=== PATIENT | male | born 1985 | race Caucasian/White ===

== ENCOUNTER 2017-08-20 17:36 | Emergency (ER) | payer OTHER ==
[~2017-08-20] VITALS: Ht 172.7 cm; Wt 70.0 kg
[2017-08-20 17:37] VITALS: BP 159/94; PULSE 83; RESP 14; TEMP 97.4; O2SAT 100
[2017-08-20] MEDS ORDERED: ADDE10 PO (18:02)
[2017-08-20] MEDS ORDERED: CELE20TA PO (18:02)
[2017-08-20] MEDS ORDERED: METHY10 PO (18:02)
[2017-08-20] MEDS ORDERED: OMEP20TA93 PO (18:02)
[2017-08-20] MEDS ORDERED: XANA2TAB2 PO (18:03)
[2017-08-20 18:05] VITALS: BP 169/104; PULSE 79; RESP 16; TEMP 98.3; O2SAT 100
--- NOTE | 2017-08-20 18:25 | PD ---
HPI Chief Complaint: Neuro Symptoms/ Deficits Time Seen by Provider: 17:57 Travel History International Travel<30 days: No Contact w/Intl Traveler<30days: No Traveled to known affect area: No History of Present Illness HPI Patient is a 32-year-old male presents emergency Department with multiple complaints and probably one complaint and every body system. He states with complaints of constipation, as complaints of fatigue and weakness. States she' s not been sleeping well. Also complains that he was admitted for a TIA in June and had a workup by his new primary care physician which she was not satisfied by. His new primary care physician told him he was schizophrenic and started him on new medicines within the last week. He is also been having complaints of prostatitis which is currently being treated as an outpatient. He is coming by his father who into to me during the patient exam that his real issues the patient has pressured speech and near flight of ideas. No suicidal or homicidal ideation. He denies any illicit substance abuse. All these symptoms been going on for more than 3 weeks. He states been great and gradually worse, symptoms moderate. Context as above. PFSH Past Medical History Anxiety: Yes Hypertension: Yes Past Surgical History Other Surgery: Yes (TITANIUM PLATE IN MANDIBLE) Social History Alcohol Use: Yes (OCCASSIONAL) Tobacco Use: Yes (1 PPD) Substance Use: Yes (MARIJUANA AT NIGHT) Allergies-Medications (Allergen,Severity, Reaction): Coded Allergies: No Known Allergies (Unverified , 08/20/17) Reported Meds & Prescriptions Reported Meds & Active Scripts Active Reported Xanax (Alprazolam) 2 Mg Tab 3 Mg PO Q8H PRN Adderall (Amphetamine-Dextroamphetamine) 10 Mg Tab 10 Mg PO TID Avoid late evening doses. Space doses at least 4 to 6 hours if more than once/day dosing. Ritalin IR (Methylphenidate HCl) 10 Mg Tab 10 Mg PO TIDAC Omeprazole 20 Mg Tab 20 Mg PO DAILY Celexa (Citalopram Hydrobromide) 20 Mg Tab 20 Mg PO DAILY Review of Systems Except as stated in HPI: all other systems reviewed are Neg Physical Exam Narrative GENERAL: Well-developed well-nourished in no obvious distress. SKIN: Focused skin assessment warm/dry. HEAD: Atraumatic. Normocephalic. EYES: Pupils equal and round. No scleral icterus. No injection or drainage. ENT: No nasal bleeding or discharge. Mucous membranes pink and moist. NECK: Trachea midline. No JVD. CARDIOVASCULAR: Regular rate and rhythm. No murmur appreciated. RESPIRATORY: No accessory muscle use. Clear to auscultation. Breath sounds equal bilaterally. GASTROINTESTINAL: Abdomen soft, non-tender, nondistended. Hepatic and splenic margins not palpable. MUSCULOSKELETAL: No obvious deformities. No clubbing. No cyanosis. No edema. NEUROLOGICAL: Awake and alert. No obvious cranial nerve deficits. Motor grossly within normal limits. Normal speech. PSYCHIATRIC: Appropriate mood and affect; fairly pressured speech and difficult to keep on topic. Denies suicidal homicidal ideation. Data Data Last Documented VS Vital Signs Date Time Temp Pulse Resp B/P (MAP) Pulse Ox O2 Delivery O2 Flow Rate FiO2 08/21/17 00:34 08/21/17 00:34 76 14 99 Room Air 08/20/17 18:05 98.3 Orders Orders Electrocardiogram (08/20/17 18:22) Complete Blood Count With Diff (08/20/17 18:22) Comprehensive Metabolic Panel (08/20/17 18:22) Creatine Kinase (Cpk) (08/20/17 18:22) Troponin I (08/20/17 18:22) Thyroid Stimulating Hormone (08/20/17 18:22) Urinalysis - C+S If Indicated (08/20/17 18:22) Ct Brain W/O Iv Contrast(Rout) (08/20/17 18:22) Blood Glucose (08/20/17 18:22) Ecg Monitoring (08/20/17 18:22) Iv Access Insert/Monitor (08/20/17 18:22) Oximetry (08/20/17 18:22) Sodium Chloride 0.9% Flush (Ns Flush) (08/20/17 18:30) Drug Screen, Random Urine (08/20/17 18:22) Alcohol (Ethanol) (08/20/17 18:22) Tylenol (Acetaminophen) (08/20/17 18:22) Salicylates (Aspirin) (08/20/17 18:22) Abdomen, Kub Only (08/20/17 ) Gc And Chlamydia Pcr (08/20/17 18:26) Psych Screen (08/20/17 18:34) Lorazepam Inj (Ativan Inj) (08/20/17 20:00) Diphenhydramine Inj (Benadryl Inj) (08/20/17 20:00) Lisinopril (Prinivil) (08/20/17 22:15) Ed Discharge Order (08/21/17 00:08) Labs Laboratory Tests Test 08/20/17 18:25 08/20/17 18:50 White Blood Count 6.5 TH/MM3 Red Blood Count 4.62 MIL/MM3 Hemoglobin 15.4 GM/DL Hematocrit 43.7 % Mean Corpuscular Volume 94.7 FL Mean Corpuscular Hemoglobin 33.3 PG Mean Corpuscular Hemoglobin Concent 35.2 % Red Cell Distribution Width 12.9 % Platelet Count 288 TH/MM3 Mean Platelet Volume 6.9 FL Neutrophils (%) (Auto) 47.4 % Lymphocytes (%) (Auto) 34.4 % Monocytes (%) (Auto) 11.5 % Eosinophils (%) (Auto) 6.1 % Basophils (%) (Auto) 0.6 % Neutrophils # (Auto) 3.1 TH/MM3 Lymphocytes # (Auto) 2.3 TH/MM3 Monocytes # (Auto) 0.8 TH/MM3 Eosinophils # (Auto) 0.4 TH/MM3 Basophils # (Auto) 0.0 TH/MM3 CBC Comment DIFF FINAL Differential Comment Blood Urea Nitrogen 11 MG/DL Creatinine 1.09 MG/DL Random Glucose 85 MG/DL Total Protein 8.0 GM/DL Albumin 4.5 GM/DL Calcium Level 9.0 MG/DL Alkaline Phosphatase 63 U/L Aspartate Amino Transf (AST/SGOT) 18 U/L Alanine Aminotransferase (ALT/SGPT) 24 U/L Total Bilirubin 0.6 MG/DL Sodium Level 137 MEQ/L Potassium Level 3.6 MEQ/L Chloride Level 103 MEQ/L Carbon Dioxide Level 27.0 MEQ/L Anion Gap 7 MEQ/L Estimat Glomerular Filtration Rate 78 ML/MIN Total Creatine Kinase 134 U/L Troponin I LESS THAN 0.02 NG/ML Thyroid Stimulating Hormone 3rd Gen 2.550 uIU/ML Salicylates Level LESS THAN 1.7 MG/DL Acetaminophen Level LESS THAN 2.0 MCG/ML Ethyl Alcohol Level LESS THAN 3 MG/DL Urine Color YELLOW Urine Turbidity HAZY Urine pH 7.0 Urine Specific [place] 1.022 Urine Protein TRACE mg/dL Urine Glucose (UA) NEG mg/dL Urine Ketones NEG mg/dL Urine Occult Blood NEG Urine Nitrite NEG Urine Bilirubin NEG Urine Urobilinogen 2.0 MG/DL Urine Leukocyte Esterase TRACE Urine RBC 2 /hpf Urine WBC 3 /hpf Urine Squamous Epithelial Cells 1 /hpf Urine Amorphous Sediment FEW Urine Bacteria OCC /hpf Urine Mucus FEW /lpf Microscopic Urinalysis Comment CULT NOT INDICATED Urine Opiates Screen NEG Urine Barbiturates Screen NEG Urine Amphetamines Screen POS Urine Benzodiazepines Screen POS Urine Cocaine Screen NEG Urine Cannabinoids Screen POS Chlamydia trachomatis DNA (PCR) NOT DETECTED Neisseria gonorrhoeae DNA (PCR) NOT DETECTED MDM Medical Decision Making Medical Screen Exam Complete: Yes Emergency Medical Condition: Yes Differential Diagnosis Constipation, electrolyte abnormality, substance abuse, substance-induced psychosis, altered mental status, intracranial abnormality. Narrative Course Patient with multiple complaints, fairly pressured speech wonder there is an element of substance induced psychosis. However his psychotic symptoms are fairly mild and he is not greatly disabled nor threat to himself or others at this time. I think the patient would benefit from basic labs as well as CAT scan of his head and a KUB for his reassurance. Patient was discussed with Dr. Fairbanks at 1900 shift change to follow-up this workup and disposition the patient appropriately. I've ordered a psych screen. My impression of the patient is that he has chronic complaints psychiatric overtones likely is stable for discharge if workup is negative. James Owens MD Aug 20, 2017 18:25
[2017-08-20] MEDS ORDERED: SODIUM CHLORIDE 0.9% FLUSH 10 ML FLUSH IV FLUSH PRN (18:30)
[2017-08-20 18:56] VITALS: O2SAT 100
[2017-08-20 19:01] LABS: AUTOMATED NEUTROPHIL # 3.1 TH/MM3 (1.8-7.7); BASOPHIL % 0.6 % (0.0-2.0); EOSINOPHIL # 0.4 TH/MM3 (0-0.4); EOSINOPHIL % 6.1 % (0.0-4.0); HEMATOCRIT 43.7 % (39.0-51.0); HEMO FLAGS DIFF FINAL; LYMPH % 34.4 % (9.0-44.0); LYMPHOCYTE # 2.3 TH/MM3 (1.0-4.8); MEAN CELL VOLUME 94.7 FL (80.0-100.0); MEAN CORPUSCULAR HEMOGLOBIN 33.3 PG (27.0-34.0); MEAN CORPUSCULAR HGB CONC 35.2 % (32.0-36.0); MONO % 11.5 % (0.0-8.0); NEUT % 47.4 % (16.0-70.0); PLATELET COUNT 288 TH/MM3 (150-450); RED BLOOD COUNT 4.62 MIL/MM3 (4.50-5.90); RED CELL DISTRIBUTION WIDTH 12.9 % (11.6-17.2); WHITE BLOOD COUNT 6.5 TH/MM3 (4.0-11.0)
[2017-08-20 19:57] LABS: BACTERIA, URINE OCC /hpf; BLOOD, URINE NEG (NEG); COMMENT (UR) CULT NOT INDICATED; CULTURE IF INDICATED CULT NOT INDICATED; GLUCOSE,URINE NEG (NEG); KETONE, URINE NEG (NEG); MUCUS URINE FEW /lpf (OCC); NITRITE,URINE NEG (NEG); SQUAMOUS EPITHELIAL CELL URINE 1 /hpf (0-5); URINE COLOR YELLOW (YELLW/STRAW)
[2017-08-20] MEDS ORDERED: diphenhydrAMINE HCL 50 MG/ML VIAL IV PUSH ONE (20:00)
[2017-08-20] MEDS ORDERED: LORazepam 2 MG/ML VIAL IV PUSH ONE (20:00)
--- NOTE | 2017-08-20 21:03 | RADRPT ---
EXAM DATE/TIME: 08/20/2017 19:27 [facility] COMPARISON: No previous studies available for comparison. INDICATIONS : Altered mental status. Memory loss, aphasia, and visual changes. RADIATION DOSE: 56.35 CTDIvol (mGy) MEDICAL HISTORY : Hypertension. SURGICAL HISTORY : None. ENCOUNTER: Initial ACUITY: 1 day PAIN SCALE: 0/10 LOCATION: cranial TECHNIQUE: Multiple contiguous axial images were obtained of the head. Using automated exposure control and adj ustment of the mA and/or kV according to patient size, radiation dose was kept as low as reasonably a chievable to obtain optimal diagnostic quality images. DICOM format image data is available electro nically for review and comparison. FINDINGS: CEREBRUM: The ventricles are normal for age. No evidence of midline shift, mass lesion, hemorrhage or acute in farction. No extra-axial fluid collections are seen. POSTERIOR FOSSA: The cerebellum and brainstem are intact. The 4th ventricle is midline. The cerebellopontine angle i s unremarkable. EXTRACRANIAL: The visualized portion of the orbits is intact. There is scattered ethmoid sinus disease. SKULL: The calvaria is intact. No evidence of skull fracture. CONCLUSION: 1. No intracranial abnormality is seen. 2. Scattered ethmoid sinus disease. Gregg Finnegan MD on August 20, 2017 at 21:00 Board Certified Radiologist. This report was verified electronically.
[2017-08-20 21:44] VITALS: BP 152/78; PULSE 80; RESP 14; O2SAT 100
[2017-08-20 21:45] LABS: ALKALINE PHOSPHATASE 63 U/L (45-117); ALT (GPT) 24 U/L (12-78); ANION GAP 7 MEQ/L (5-15); AST (GOT) 18 U/L (15-37); BLOOD UREA NITROGEN 11 MG/DL (7-18); CHLORIDE 103 MEQ/L (98-107); CREATINE KINASE 134 U/L (39-308); GLOMERULAR FILTRATION RATE 78 ML/MIN (>89); POTASSIUM 3.6 MEQ/L (3.5-5.1); SODIUM (NA) 137 MEQ/L (136-145); TOTAL BILIRUBIN ADULT 0.6 MG/DL (0.2-1.0)
[2017-08-20 21:46] LABS: ACETAMINOPHEN LESS THAN 2.0 MCG/ML (10.0-30.0); ALCOHOL LESS THAN 3 MG/DL (0-5)
--- NOTE | 2017-08-20 22:03 | RADRPT ---
EXAM DATE/TIME: 08/20/2017 18:38 [facility] COMPARISON: No previous studies available for comparison. INDICATIONS : Cognitive complaint Constipation MEDICAL HISTORY : None. SURGICAL HISTORY : None. ENCOUNTER: Initial ACUITY: 1 month PAIN SCORE: 0/10 LOCATION: Abdomen FINDINGS: Supine view of the abdomen was performed. The abdominal bowel gas pattern is normal. No abnormal ma sses, calcifications, or organomegaly is seen. The osseous structures are unremarkable. CONCLUSION: No acute disease. Gregg Finnegan MD on August 20, 2017 at 22:01 Board Certified Radiologist. This report was verified electronically.
[2017-08-20] MEDS ORDERED: LISINOPRIL 5 MG TAB PO ONE (22:15)
--- NOTE | 2017-08-21 00:13 | PD ---
Physical Exam Date Seen by Provider: Sep 18, 2017 Time Seen by Provider: 20:00 Narrative GENERAL: pressured speech paranoid ideation that family of are plotting to kill him SKIN: Warm and dry. HEAD: Atraumatic. Normocephalic. EYES: Pupils : right pupil 3 mm reactive ; left 4mm round reactive.... No scleral icterus. No injection or drainage. ENT: No nasal bleeding or discharge. Mucous membranes pink and moist. NECK: Trachea midline. No JVD. CARDIOVASCULAR: Regular rate and rhythm. BP slightly elevated 155 SBP RESPIRATORY: No accessory muscle use. Clear to auscultation. Breath sounds equal bilaterally. GASTROINTESTINAL: Abdomen soft, non-tender, nondistended. Hepatic and splenic margins not palpable. MUSCULOSKELETAL: Extremities without clubbing, cyanosis, or edema. No obvious deformities. NEUROLOGICAL: Awake and alert. No obvious cranial nerve deficits. Motor grossly within normal limits. Five out of 5 muscle strength in the arms and legs. Normal speech. PSYCHIATRIC: pressured speech and suspicious thought process ; insight and judgment impaired . pt on initial exam seemed to be paranoid from lack of sleep and over stimulation from his ritalin and adderall which are his prescribed meds. pt . mentation became normal with ativan and benadryl IV and his thought process also seemed normalized . pt wants to go home .I had a long discussion with him of the stress of his life with and father in law and he feels safe and wants to go home. He is told of the dangers of over using his stimulants to stay awake to deal with his work and social stressors. I spoke to his father on the phone and also spent 20 minutes discussing and psych evaluating him for discharge or psych consult > I feel he is safe to go home he denies SI no HI , now after ativan his thought process seems without delusions Data Data Last Documented VS Vital Signs Date Time Temp Pulse Resp B/P (MAP) Pulse Ox O2 Delivery O2 Flow Rate FiO2 08/21/17 00:34 08/21/17 00:34 76 14 99 Room Air 08/20/17 18:05 98.3 Orders Orders Electrocardiogram (08/20/17 18:22) Complete Blood Count With Diff (08/20/17 18:22) Comprehensive Metabolic Panel (08/20/17 18:22) Creatine Kinase (Cpk) (08/20/17 18:22) Troponin I (08/20/17 18:22) Thyroid Stimulating Hormone (08/20/17 18:22) Urinalysis - C+S If Indicated (08/20/17 18:22) Ct Brain W/O Iv Contrast(Rout) (08/20/17 18:22) Blood Glucose (08/20/17 18:22) Ecg Monitoring (08/20/17 18:22) Iv Access Insert/Monitor (08/20/17 18:22) Oximetry (08/20/17 18:22) Sodium Chloride 0.9% Flush (Ns Flush) (08/20/17 18:30) Drug Screen, Random Urine (08/20/17 18:22) Alcohol (Ethanol) (08/20/17 18:22) Tylenol (Acetaminophen) (08/20/17 18:22) Salicylates (Aspirin) (08/20/17 18:22) Abdomen, Kub Only (08/20/17 ) Gc And Chlamydia Pcr (08/20/17 18:26) Psych Screen (08/20/17 18:34) Lorazepam Inj (Ativan Inj) (08/20/17 20:00) Diphenhydramine Inj (Benadryl Inj) (08/20/17 20:00) Lisinopril (Prinivil) (08/20/17 22:15) Ed Discharge Order (08/21/17 00:08) Labs Laboratory Tests Test 08/20/17 18:25 08/20/17 18:50 White Blood Count 6.5 TH/MM3 Red Blood Count 4.62 MIL/MM3 Hemoglobin 15.4 GM/DL Hematocrit 43.7 % Mean Corpuscular Volume 94.7 FL Mean Corpuscular Hemoglobin 33.3 PG Mean Corpuscular Hemoglobin Concent 35.2 % Red Cell Distribution Width 12.9 % Platelet Count 288 TH/MM3 Mean Platelet Volume 6.9 FL Neutrophils (%) (Auto) 47.4 % Lymphocytes (%) (Auto) 34.4 % Monocytes (%) (Auto) 11.5 % Eosinophils (%) (Auto) 6.1 % Basophils (%) (Auto) 0.6 % Neutrophils # (Auto) 3.1 TH/MM3 Lymphocytes # (Auto) 2.3 TH/MM3 Monocytes # (Auto) 0.8 TH/MM3 Eosinophils # (Auto) 0.4 TH/MM3 Basophils # (Auto) 0.0 TH/MM3 CBC Comment DIFF FINAL Differential Comment Blood Urea Nitrogen 11 MG/DL Creatinine 1.09 MG/DL Random Glucose 85 MG/DL Total Protein 8.0 GM/DL Albumin 4.5 GM/DL Calcium Level 9.0 MG/DL Alkaline Phosphatase 63 U/L Aspartate Amino Transf (AST/SGOT) 18 U/L Alanine Aminotransferase (ALT/SGPT) 24 U/L Total Bilirubin 0.6 MG/DL Sodium Level 137 MEQ/L Potassium Level 3.6 MEQ/L Chloride Level 103 MEQ/L Carbon Dioxide Level 27.0 MEQ/L Anion Gap 7 MEQ/L Estimat Glomerular Filtration Rate 78 ML/MIN Total Creatine Kinase 134 U/L Troponin I LESS THAN 0.02 NG/ML Thyroid Stimulating Hormone 3rd Gen 2.550 uIU/ML Salicylates Level LESS THAN 1.7 MG/DL Acetaminophen Level LESS THAN 2.0 MCG/ML Ethyl Alcohol Level LESS THAN 3 MG/DL Urine Color YELLOW Urine Turbidity HAZY Urine pH 7.0 Urine Specific [place] 1.022 Urine Protein TRACE mg/dL Urine Glucose (UA) NEG mg/dL Urine Ketones NEG mg/dL Urine Occult Blood NEG Urine Nitrite NEG Urine Bilirubin NEG Urine Urobilinogen 2.0 MG/DL Urine Leukocyte Esterase TRACE Urine RBC 2 /hpf Urine WBC 3 /hpf Urine Squamous Epithelial Cells 1 /hpf Urine Amorphous Sediment FEW Urine Bacteria OCC /hpf Urine Mucus FEW /lpf Microscopic Urinalysis Comment CULT NOT INDICATED Urine Opiates Screen NEG Urine Barbiturates Screen NEG Urine Amphetamines Screen POS Urine Benzodiazepines Screen POS Urine Cocaine Screen NEG Urine Cannabinoids Screen POS Chlamydia trachomatis DNA (PCR) NOT DETECTED Neisseria gonorrhoeae DNA (PCR) NOT DETECTED [facility] Supervised Visit with JUANI: No Narrative Course pt became rational in thought process and wanted to go home , His in laws left and he is appropriate for discharge ,, after benadryl benzo( ativan ) his affect and thoughts were close to normal but still questioned if family of had thoughts of gettimg his money, Does not meet Godwin act critieria and I cousel him for 15 minutes of need for psychiatric traetment on outpt to adjust his meds. and executive secretary social welfare for social support Diagnosis Primary Impression: FIELD TECH stimulant overdose Qualified Codes: T43.601A - Poisoning by unspecified psychostimulants, accidental (unintentional), initial encounter Disposition: 01 DISCHARGE HOME Condition: Good Chaparro Fairbanks MD Aug 21, 2017 00:13
[2017-08-21 00:34] VITALS: BP 144/72; PULSE 76; RESP 14; O2SAT 99
[2017-08-21 03:35] LABS: CHLAMYDIA PCR NOT DETECTED (NOT DETECT); NEISSERIA PCR NOT DETECTED (NOT DETECT)
--- NOTE | 2017-08-21 15:55 | EKG ---
Date Performed: 08/20/2017 Time Performed: 20:19:54 PTAGE: 32 years EKG: Sinus rhythm NORMAL ECG NO PREVIOUS TRACING DOCTOR: Tameka Rodriguez Interpretating Date/Time 08/21/2017 15:54:21
== END 2017-08-21 00:35 | disposition home or self-care (01) ==
LOC: NEPC 17:36
DX: T43.601A Poisoning by unspecified psychostimulants, accidental (unintentional), initial encounter (principal); K59.00 Constipation, unspecified; F17.200 Nicotine dependence, unspecified, uncomplicated
CPT/HCPCS: 70450; 74000; 80053; 80307; 81001; 82550; 84443; 84484; 85025; 87491; 87591; 93005; 96374; 96375; 99285; J1200; J2060